=== PATIENT | female | born 1960 | race American Indian/Alaskan Native ===

== ENCOUNTER 2017-12-01 13:04 | Emergency (ER) | payer SELFPAY ==
[2017-12-01] MEDS ORDERED: NORCO 5/325 PO ONE (17:40)
--- NOTE | 2017-12-01 18:33 | Emergency Department Report ---
ED General Adult HPI - General Chief complaint: Pain General Stated complaint: LEFT EYE SWOLLEN Time Seen by Provider: 12/01/17 17:39 Source: patient Mode of arrival: Ambulatory Limitations: No Limitations - History of Present Illness Initial comments: Patient is a 56-year-old -Algerian female who presents for left-sided facial pain and sinus swelling 1 day patient denies fever chills no difficulty breathing no shortness of breath no nausea vomiting, pain is 4/10 aching and pressure patient has not attempted [id number] pain medications there no hs of dental caries or abscesses. Onset/Timin -: days(s) Location: face Radiation: non-radiation Severity scale (0 -10): 4 Quality: aching, sharp Consistency: constant Improves with: none Worsens with: none Associated Symptoms: denies: fever/chills, headaches, loss of appetite, nausea/ vomiting, shortness of breath, syncope, weakness Treatments Prior to Arrival: none - Related Data Previous Rx's Medication Instructions Recorded Last Taken Type Clindamycin [Clindamycin CAP] 300 mg PO Q6H #40 capsule 12/01/17 Unknown Rx Fluticasone [Flonase] 1 spray NS QDAY #1 bottle 12/01/17 Unknown Rx traMADol [Ultram] 50 mg PO Q8HR PRN #21 tablet 12/01/17 Unknown Rx Allergies Allergy/AdvReac Type Severity Reaction Status Date / Time No Known Allergies Allergy Unverified 12/01/17 13:32 ED Review of Systems ROS: Stated complaint: LEFT EYE SWOLLEN Other details as noted in HPI Constitutional: denies: chills, fever Eyes: denies: eye pain, eye discharge, vision change ENT: congestion. denies: ear pain, throat pain, dental pain, epistaxis Respiratory: denies: cough, shortness of breath, wheezing Cardiovascular: denies: chest pain, palpitations Endocrine: no symptoms reported Gastrointestinal: denies: abdominal pain, nausea, diarrhea Genitourinary: denies: urgency, dysuria, discharge Musculoskeletal: denies: back pain, joint swelling, arthralgia Skin: denies: rash, lesions Neurological: denies: headache, weakness, paresthesias Psychiatric: denies: anxiety, depression Hematological/Lymphatic: denies: easy bleeding, easy bruising ED Past Medical Hx - Past Medical History Previous Medical History?: No - Surgical History Additional Surgical History: hysterectomy, skin graft - Social History Smoking Status: Never Smoker Substance Use Type: Alcohol - Medications Home Medications: Home Medications Medication Instructions Recorded Confirmed Last Taken Type Clindamycin [Clindamycin CAP] 300 mg PO Q6H #40 capsule 12/01/17 Unknown Rx Fluticasone [Flonase] 1 spray NS QDAY #1 bottle 12/01/17 Unknown Rx traMADol [Ultram] 50 mg PO Q8HR PRN #21 tablet 12/01/17 Unknown Rx ED Physical Exam - General Limitations: No Limitations General appearance: alert, in no apparent distress - Head Head exam: Present: atraumatic, normocephalic - Eye Eye exam: Present: normal appearance, PERRL, EOMI Pupils: Present: normal accommodation - ENT ENT exam: Present: mucous membranes moist, TM's normal bilaterally - Expanded ENT Exam Expanded Mouth exam: Present: other (left maxillary sinus tenderness swelling no erythema no crepitus ). Absent: trismus Throat exam: Negative: tonsillar erythema, tonsillomegaly, tonsillar exudate, R peritonsillar mass, L peritonsillar mass - Neck Neck exam: Present: normal inspection - Respiratory Respiratory exam: Present: normal lung sounds bilaterally. Absent: respiratory distress - Cardiovascular Cardiovascular Exam: Present: regular rate, normal rhythm, tachycardia, normal heart sounds. Absent: systolic murmur, diastolic murmur, rubs, gallop - GI/Abdominal GI/Abdominal exam: Present: soft, normal bowel sounds. Absent: distended, tenderness, guarding, rebound, mass, bruit, pulsatile mass, hernia - Rectal Rectal exam: Present: deferred - Extremities Exam Extremities exam: Present: normal inspection - Back Exam Back exam: Present: normal inspection, full ROM. Absent: tenderness, CVA tenderness (R), CVA tenderness (L) - Neurological Exam Neurological exam: Present: alert, oriented X3, CN II-XII intact, normal gait, reflexes normal - Psychiatric Psychiatric exam: Present: normal affect, normal mood - Skin Skin exam: Present: warm, dry, intact, normal color. Absent: rash ED Course Vital Signs 12/01/17 13:32 Temperature 99.5 F Pulse Rate 120 H Respiratory 20 Rate Blood Pressure 155/80 O2 Sat by Pulse 99 Oximetry ED Medical Decision Making - Lab Data Result diagrams: 12/01/17 18:54 01/02/18 18:54 - Radiology Data Radiology results: image reviewed left sinusitis - Medical Decision Making Patient is a 56-year-old -Algerian female who presents for left-sided facial pain and sinus swelling 1 day patient denies fever chills no difficulty breathing no shortness of breath no nausea vomiting, pain is 4/10 aching and pressure patient has not attempted [id number] pain medications there no hs of dental caries or abscesses. exam: pt appears well nontoxic left maxillary swelling not, nonfluctuant , left nare swelling no obstruction, symptoms improved with clindamycin ivpb, & ivfs, swelling reduced, pt refuses needle decompression attempt at this time. cmp and cbc normal , CT facial bones pending however pt not willing to wait for results, plan: dc to self in stable condition with rx Clindamycin, ultram, follow up with ENT in 2-3 days, pt verbalized agreement and understanding of same Critical care attestation.: If time is entered above; I have spent that time in minutes in the direct care of this critically ill patient, excluding procedure time. ED Disposition Clinical Impression: Sinusitis Qualifiers: Sinusitis location: maxillary Chronicity: acute Recurrence: non-recurrent Qualified Code(s): J01.00 - Acute maxillary sinusitis, unspecified Disposition: DC-01 TO HOME OR SELFCARE Is pt being admited?: No Does the pt Need Aspirin: No Condition: Stable Instructions: Sinusitis (ED) Prescriptions: Clindamycin [Clindamycin CAP] 300 mg PO Q6H #40 capsule Fluticasone [Flonase] 1 spray NS QDAY #1 bottle traMADol [Ultram] 50 mg PO Q8HR PRN #21 tablet PRN Reason: Pain Referrals: SARAH BARAHONA MD [Primary Care Provider] - 3-5 Days Forms: Work/School Release Form(ED) Time of Disposition: 20:23
[2017-12-01] MEDS ORDERED: CLEOCIN 900 MG/50 mL 900 MG/50 ML BAG IV ONE (18:36)
[2017-12-01] MEDS ORDERED: NACL 0.9% 1000 ML 1,000 ML IV ONE (18:36)
[2017-12-01 19:08] LABS: Basophils % (Auto) 0.3 % (0.0-1.8); Hematocrit 35.8 % (30.3-42.9); Hemoglobin 11.9 gm/dl (10.1-14.3); Lymphocytes # (Auto) 2.1 K/mm3 (1.2-5.4); Lymphocytes % (Auto) 18.9 % (13.4-35.0); Mean Corpuscular HGB Conc 33 % (30-34); Mean Corpuscular Hemoglobin 27 pg (28-32); Mean Corpuscular Volume 81 fl (79-97); Monocytes # (Auto) 1.2 K/mm3 (0.0-0.8); Monocytes % (Auto) 10.8 % (0.0-7.3); Platelet Count 206 K/mm3 (140-440); Red Blood Count 4.43 M/mm3 (3.65-5.03); Red Cell Distribution Width 14.2 % (13.2-15.2)
[2017-12-01 19:25] LABS: Alanine Aminotransferase 18 units/L (7-56); Albumin 3.8 g/dL (3.9-5); BUN/Creatinine Ratio 10; Blood Urea Nitrogen 7 mg/dL (7-17); Calcium 8.6 mg/dL (8.4-10.2); Hemolysis Index 8
[2017-12-02 02:39] VITALS: BP 125/60
--- NOTE | 2017-12-02 06:03 | Cat Scan Report ---
FINAL REPORT EXAM: CT FACIAL BONES WO CON HISTORY: facial swelling TECHNIQUE: Axial images and coronal and sagittal reformatted images of the face/facial bones were obtained. PRIORS: None. FINDINGS: There is no facial bone fracture seen. The paranasal sinuses are clear except for minimal ethmoid and maxillary sinus mucosal thickening. There is soft tissue swelling involving the left infraorbital region and left cheek. No abnormal fluid collections seen. There is no intraorbital abnormality seen. The globes are intact. IMPRESSION: There is mild left infraorbital in cheek soft tissue swelling which is suggestive of some left facial cellulitis. No definite tooth abscess or other abscess seen. No significant sinusitis seen.
== END 2017-12-01 20:30 | disposition home or self-care (01) ==
LOC: ED 13:04
DX: J01.00 Acute maxillary sinusitis, unspecified (principal); Z90.710 Acquired absence of both cervix and uterus
CPT/HCPCS: 36415; 70486; 80053; 85025; 96365; 99284; J7030

== ENCOUNTER 2017-12-02 11:35 | Emergency (ER) | payer SELFPAY ==
[2017-12-02 12:53] VITALS: BP 140/80
--- NOTE | 2017-12-02 17:22 | Emergency Department Report ---
ED General Adult HPI - General Chief complaint: Skin/Abscess/Foreign Body Stated complaint: FACIAL SWELLING Time Seen by Provider: 12/02/17 17:14 Source: patient Mode of arrival: Ambulatory Limitations: No Limitations - History of Present Illness Initial comments: pt is a 57 y/o aam who returns to day for left facial cellulitis, pt seen in ed last night dx with facial cellulitis/ infraorbital cellulitis without abscess via ct scan there is no fever no chills, pt states she wanted to follow up for ct read and appropriate follow up with ENT , however symptoms are improving with clindamycin po qid Onset/Timin -: days(s) Location: face Radiation: non-radiation Severity scale (0 -10): 4 Quality: aching Consistency: constant Worsens with: none Associated Symptoms: denies: confusion, chest pain, cough, fever/chills, headaches, loss of appetite, malaise, nausea/vomiting, rash, shortness of breath , syncope, weakness Treatments Prior to Arrival: none - Related Data Previous Rx's Medication Instructions Recorded Last Taken Type Clindamycin [Clindamycin CAP] 300 mg PO Q6H #40 capsule 12/01/17 Unknown Rx Fluticasone [Flonase] 1 spray NS QDAY #1 bottle 12/01/17 Unknown Rx traMADol [Ultram] 50 mg PO Q8HR PRN #21 tablet 12/01/17 Unknown Rx Ciprofloxacin 0.3% (Nf) 1 drop OP Q3HR 7 Days #5 ml 12/02/17 Unknown Rx [Ciprofloxacin OPTH] Allergies Allergy/AdvReac Type Severity Reaction Status Date / Time No Known Allergies Allergy Unverified 12/01/17 13:32 ED Review of Systems ROS: Stated complaint: FACIAL SWELLING Other details as noted in HPI Constitutional: denies: chills, fever Eyes: denies: eye pain, eye discharge, vision change ENT: denies: ear pain, throat pain Respiratory: denies: cough, shortness of breath, wheezing Cardiovascular: denies: chest pain, palpitations Endocrine: no symptoms reported Gastrointestinal: denies: abdominal pain, nausea, diarrhea Genitourinary: denies: urgency, dysuria, discharge Musculoskeletal: denies: back pain, joint swelling, arthralgia Skin: other (facial swelling and pain ) Neurological: denies: headache, weakness, paresthesias Psychiatric: denies: anxiety, depression Hematological/Lymphatic: denies: easy bleeding, easy bruising ED Past Medical Hx - Surgical History Additional Surgical History: hysterectomy, skin graft - Social History Smoking Status: Never Smoker Substance Use Type: Alcohol, Prescribed - Medications Home Medications: Home Medications Medication Instructions Recorded Confirmed Last Taken Type Clindamycin [Clindamycin CAP] 300 mg PO Q6H #40 capsule 12/01/17 Unknown Rx Fluticasone [Flonase] 1 spray NS QDAY #1 bottle 12/01/17 Unknown Rx traMADol [Ultram] 50 mg PO Q8HR PRN #21 tablet 12/01/17 Unknown Rx Ciprofloxacin 0.3% (Nf) 1 drop OP Q3HR 7 Days #5 ml 12/02/17 Unknown Rx [Ciprofloxacin OPTH] ED Physical Exam - General Limitations: No Limitations General appearance: alert, in no apparent distress - Head Head exam: Present: atraumatic, normocephalic - Eye Eye exam: Present: normal appearance, PERRL, EOMI, periorbital tenderness (mild tenderness ). Absent: conjunctival injection Pupils: Present: normal accommodation - ENT ENT exam: Present: normal exam, normal orophraynx, mucous membranes moist, TM's normal bilaterally, normal external ear exam, other (left maxillary region swelling and tenderness ) - Expanded ENT Exam Expanded Ear exam: Present: normal external inspection Mouth exam: Absent: trismus Teeth exam: Present: normal inspection. Absent: gingival enlargement Throat exam: Positive: normal inspection. Negative: tonsillar erythema, tonsillar exudate, R peritonsillar mass, L peritonsillar mass - Neck Neck exam: Present: normal inspection, full ROM. Absent: tenderness, lymphadenopathy, thyromegaly - Respiratory Respiratory exam: Present: normal lung sounds bilaterally. Absent: wheezes, stridor, chest wall tenderness - Cardiovascular Cardiovascular Exam: Present: regular rate, normal rhythm. Absent: systolic murmur, diastolic murmur, rubs, gallop - GI/Abdominal GI/Abdominal exam: Present: soft, normal bowel sounds. Absent: distended, tenderness, guarding, rebound, mass, pulsatile mass, hernia - Rectal Rectal exam: Present: deferred - Extremities Exam Extremities exam: Present: normal inspection - Back Exam Back exam: Present: normal inspection - Neurological Exam Neurological exam: Present: alert, oriented X3 - Psychiatric Psychiatric exam: Present: normal affect, normal mood - Skin Skin exam: Present: warm, dry, intact, normal color. Absent: rash, erythema, urticaria, ecchymosis ED Course Vital Signs 12/02/17 12:48 Temperature 99.2 F Pulse Rate 110 H Respiratory 18 Rate Blood Pressure 140/80 O2 Sat by Pulse 99 Oximetry ED Medical Decision Making - Medical Decision Making pt is a 57 y/o aam who returns to day for left facial cellulitis, pt seen in ed last night dx with facial cellulitis/ infraorbital cellulitis without abscess via ct scan there is no fever no chills, pt states she wanted to follow up for ct read and appropriate follow up with ENT , however symptoms are improving with clindamycin po qid, there is no change in assessment , swelling, pain , and erythema are improving , pt will follow up with Dr. Mason ENT in 2 days, pt will call to setup appoint. Critical care attestation.: If time is entered above; I have spent that time in minutes in the direct care of this critically ill patient, excluding procedure time. ED Disposition Clinical Impression: Facial cellulitis Disposition: DC-01 TO HOME OR SELFCARE Is pt being admited?: No Does the pt Need Aspirin: No Condition: Good Instructions: Cellulitis (ED) Prescriptions: Ciprofloxacin 0.3% (Nf) [Ciprofloxacin OPTH] 1 drop OP Q3HR 7 Days #5 ml Referrals: MOOSE ALFARO MD [Staff Physician] - 3-5 Days Forms: Work/School Release Form(ED) Time of Disposition: 17:34
== END 2017-12-02 17:58 | disposition home or self-care (01) ==
LOC: ED 11:35
DX: L03.211 Cellulitis of face (principal)
CPT/HCPCS: 99282

== ENCOUNTER 2020-02-02 10:26 | Emergency (ER) | payer OTHER, BC ==
--- NOTE | 2020-02-02 15:44 | XRay Report ---
Cervical spine-3 views Lumbar spine-3 views INDICATION: Acute generalized neck and low back pain. COMPARISON: None. IMPRESSION: Normal cervical and lumbar spine alignment. Mild mid lumbar discogenic DJD and mild low er lumbar facet arthropathy. Otherwise no significant DJD. No acute osseous or soft tissue abnormali ty. Signer Name: Naveen Sanders MD Signed: 02/02/2020 3:40 PM Workstation Name: [id number]
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
[2020-02-02 16:52] VITALS: BP 118/69
== END 2020-02-02 16:51 | disposition home or self-care (01) ==
LOC: ED 10:26
DX: M54.5 Low back pain (principal); M54.2 Cervicalgia; Z90.710 Acquired absence of both cervix and uterus; Z98.890 Other specified postprocedural states; Z79.899 Other long term (current) drug therapy; V49.49XA Driver injured in collision with other motor vehicles in traffic accident, initial encounter; Y93.89 Activity, other specified; Y92.410 Unspecified street and highway as the place of occurrence of the external cause; Y99.8 Other external cause status
CPT/HCPCS: 72040; 72100